=== PATIENT | male | born 1985 | race Caucasian/White ===

== ENCOUNTER → 2022-02-16 | Outpatient (REF) | payer SELFPAY ==
[2022-02-16 11:32] LABS: SEMEN APPEARANCE OPAQUE (OPAQUE)
[2022-02-16 11:33] LABS: SEMEN VISCOSITY LIQUID (LIQUID); SEMEN WBC <=1 M/ml (<=1 M/ml)
== END ==
LOC: M LAB REF 10:36
PROVIDERS: ATTEND Obstetrics & Gynecology Obstetrics
DX: N46.9 Male infertility, unspecified (principal)

== ENCOUNTER 2024-08-10 10:33 | Emergency (ER) | payer OTHER, BC ==
[~2024-08-10] VITALS: Ht 180.3 cm; Wt 114.4 kg
[2024-08-10 10:46] VITALS: TEMP 98.8
[2024-08-10 12:30] VITALS: BP 141/87
[2024-08-10 13:30] VITALS: O2SAT 98
== END 2024-08-10 13:46 | disposition home or self-care (01) ==
LOC: M ED 10:33 → EDBD 10:33 → M ED 13:46
DX: S00.93XA Contusion of unspecified part of head, initial encounter (principal); S16.1XXA Strain of muscle, fascia and tendon at neck level, initial encounter; V49.40XA Driver injured in collision with unspecified motor vehicles in traffic accident, initial encounter; Y92.410 Unspecified street and highway as the place of occurrence of the external cause; Y93.89 Activity, other specified; Y99.9 Unspecified external cause status